=== PATIENT | female | born 1965 | race Caucasian/White ===

== ENCOUNTER 2020-04-25 12:09 | Emergency (ER) | payer OTHER ==
[~2020-04-25] VITALS: Ht 167.6 cm; Wt 65.9 kg
[2020-04-25 12:17] VITALS: Ht 167.6 cm; Wt 65.9 kg
[2020-04-25 13:22] LABS: BASOPHILS 0 % (0-2); EOSINOPHILS 0 % (0-7); HEMATOCRIT 37.1 % (36.0-48.0); HEMOGLOBIN 12.2 g/dL (12-16); IMMATURE GRANULOCYTES 0.3 % (0-5); LYMPHOCYTES 8.6 % (15-50); MCHC 32.9 g/dL (31.0-37.0); MCV 88.1 fL (80.0-100.0); MEAN PLATELET VOLUME 9.9 fL (7.4-10.4); NEUTROPHILS 83.1 % (40-80); PLATELET COUNT 196 10x3/uL (130-400); RBC 4.21 10x6/uL (4.00-5.40); RDW 12.7 % (11.5-14.5); WBC 11.3 10x3/uL (4.8-10.8)
[2020-04-25 13:31] LABS: CALC OSMOLALITY 272 mosm/kg (275-300); CALCIUM 8.8 mg/dL (8.5-10.1); CARBON DIOXIDE 26.3 mmol/L (21.0-32.0); CHLORIDE - SERUM 100 mmol/L (98-107); CREATININE - SERUM 0.7 mg/dL (0.6-1.3); GLUCOSE 96 mg/dL (74-106); POTASSIUM - SERUM 3.7 mmol/L (3.5-5.1); SODIUM 137 mmol/L (136-145); UREA NITROGEN 10 mg/dL (7-18); eGFR NON AFRICAN AMERICAN > 90 mL/min (90-120)
[2020-04-25 13:37] LABS: ALBUMIN 3.6 g/dL (3.4-5.0); ALKALINE PHOSPHATASE 85 U/L (30-120); ALT (SGPT) 16 U/L (10-68); APTT 31.7 SECONDS (22.8-39.4); BILIRUBIN - TOTAL 0.46 mg/dL (0.2-1.3); INR 1.21 (0.85-1.17); PROTEIN - SERUM 8.1 g/dL (6.4-8.2); PROTIME 15.3 SECONDS (11.6-15.0)
[2020-04-25 14:33] LABS: D-DIMER-QUANTITATIVE > 20.00 ug/mLFEU (0.20-0.54)
[2020-04-25 14:36] LABS: C-REACTIVE PROTEIN 25.2 mg/dL (0.0-0.9)
[2020-04-25] MEDS ORDERED: ALBUTEROL SULF8.5 GM INH (17:52)
[2020-04-25] MEDS ORDERED: STERAPRED DS 1010 MG PO (17:52)
[2020-04-25] MEDS ORDERED: TESSALON PERLE100 MG PO (17:52)
[2020-04-25] MEDS ORDERED: ZPAK PO (17:52)
[2020-04-25 19:31] VITALS: BP 148/71
== END 2020-04-25 19:07 | disposition home or self-care (01) ==
LOC: D.ER 12:09
PROVIDERS: Family Medicine
DX: R04.2 Hemoptysis (principal); R79.82 Elevated C-reactive protein (CRP); R79.1 Abnormal coagulation profile; I10 Essential (primary) hypertension; D72.829 Elevated white blood cell count, unspecified; Z20.828 Contact with and (suspected) exposure to other viral communicable diseases; F17.219 Nicotine dependence, cigarettes, with unspecified nicotine-induced disorders

== ENCOUNTER 2020-05-08 15:13 | Inpatient (IN) | payer OTHER ==
[~2020-05-08] VITALS: Ht 152.4 cm; Wt 65.0 kg
--- NOTE | ~2020-05-08 | CN ---
PATIENT NAME:KELY CHANG MEDICAL RECORD: [id number] : 63 LOCATION:D. D.2119 ADMIT DATE: 05/08/20 ACCOUNT: [id number] CONSULTING PHYSICIAN: CHERI FINCH MD REFERRING PHYSICIAN: TOM ACOSTA MD DATE OF CONSULTATION: 05/09/2020 HISTORY OF PRESENT ILLNESS: A 54-year-old female with no known history of coronary artery disease. She has a history of borderline hypertension, on no medications, been told to have hyperlipidemia in the past, as well as family history of coronary artery disease. Has 2-week history of just generalized malaise, fatigue, tiredness, began having chest tightness, pressure, difficulty breathing, long-term smoking history. She thought this might be secondary to obstructive pulmonary disease; however, found to have NSTEMI. We are asked to see her concerning her cardiovascular status. PAST MEDICAL HISTORY: Includes; 1. History of hypertension, lifestyle controlled. 2. Dyslipidemia. 3. Obstructive pulmonary disease. ALLERGIES: DEMEROL. MEDICATIONS: Chronically at home include albuterol 2 puffs q.i.d., Tessalon Perles 100 mg t.i.d. p.r.n. SOCIAL HISTORY: Smokes about a pack a day, nondrinker. No illicit drug use. Easily takes care of all her ADLs. REVIEW OF SYSTEMS: The patient reports easy bruising but reports no swollen glands. The patient reports no fever, no night sweats, no significant weight gain, no significant weight loss. No significant exercise tolerance. The patient reports no dry eyes, no irritation, no vision change. Patient reports no difficulty hearing and no ear pain. Patient reports no frequent nose bleeds or nose and sinus problems. Patient reports on arm pain on exertion. No shortness of breath while lying down. No history of heart murmur. Patient reports no cough, no wheezing or coughing up blood. Patient reports no abdominal pain, no vomiting. Normal appetite. No diarrhea and not vomiting blood. No nausea and no constipation. Patient reports no incontinence. No difficulty urinating. No hematuria. No increased frequency. Patient reports no muscle aches. No weakness, no arthralgias, no back pain. No swelling of the extremities. Patient reports no abnormal mole, no jaundice, no rashes. Reports no loss of consciousness. No weakness and no numbness. No seizures, dizziness, or headaches. The patient reports no depression, no sleep disturbance, feeling safe in a relationship and no alcohol abuse. Patient reports on fatigue. Reports no runny nose or sinus pressure. No itching, no hives, and no frequent sneezing. PHYSICAL EXAMINATION: GENERAL: No acute distress, appears stated age. VITAL SIGNS: Blood pressure 109/55, pulse 80 and regular. HEENT: Normocephalic, atraumatic. NECK: No JVD or bruit. HEART: Regular, II/ systolic ejection murmur. LUNGS: Slight prolonged expiratory phase, few wheezes. CONSULT REPORT [id number] KELY CHANG ABDOMEN: Soft, nontender. EXTREMITIES: Pulses 2+. There is no edema. DIAGNOSTIC DATA: EKG without acute ST-T changes. IMPRESSION AND PLAN: Non-ST elevation myocardial infarction, intermittent pain since admission. We will plan for angiography. Intervention based on the above. TRANSINT:[id number] Voice Confirmation ID: [id number] DOCUMENT ID: [id number] CHERI FINCH MD CC: [id number] DICTATION DATE: 05/09/20842 PERSONNEL SCHEDULER: 05/09/20 1032 ADM IN [facility] [address] [place] [address]
--- NOTE | ~2020-05-08 | HEMODYNAMI ---
PATIENT:KELY CHANG MEDICAL RECORD: [id number] : 63 LOCATION:[facility] D.2119 ADMISSION DATE: 05/08/20 Generatedon:05/09/202015:13 Patient name: KELY CHANG Patient #: [id number] SSN: [id number] : 1965 Date of study: 05/09/2020 Page: Of Hemodynamic Procedure Report Patient Data Patient Demographics Procedure consent was obtained First Name: KELY Gender: Female Last Name: CHARLENE : 1965 Patient #: [id number] Age: 54 year(s) Race: Unknown SSN: [id number] Additional ID: [id number] Contact details Address: [address] [place] [address] State: [place] City: [place] Zip code: [address] Past Medical History Allergies Allergen Reaction Date Comments Reported Other allergy 05/09/2020 demerol Admission Admission Data Admission Date: 05/08/2020 Admission Time: 17:35 Arrival Date: 05/09/2020 Arrival Time: 0:00 Admit Source: Other [facility] #: [id number] Room #: [facility]9 Height (in.): 59.84 BSA: 1.62 (m2) Height (cm.): 152 BMI: 28.13 (kg/m2) Weight (lbs.): 143.3 Weight (kg.): 65 Lab Results Lab Result Date: 05/09/2020 Lab Result Time: 0:00 Biochemistry Name Units Result Min Max BUN mg/dl 10 --(-*--)-- 7 18 Creatinine mg/dl 0.8 --(-*--)-- 0.6 1.3 eGFR ml/min 79.76871 *-(----)-- 90 120 NONAFRICAN CBC Name Units Result Min Max Hemoglobin g/dl 10.6 *-(----)-- 13.5 17.5 Procedure Procedure Types Cath Procedure Diagnostic Procedure LHC LHC w/Coronaries Procedure Description Procedure Date Procedure Date: 05/09/2020 Procedure Start Time: 14:56 Procedure End Time: 15:08 Procedure Staff Name Function Xavier La MD Performing Physician Caridad Graves RT Monitor Dirk Neumann RN Nurse Hilaria Muir RT Scrub Procedure Data Cath Procedure Fluoroscopy Diagnostic fluoroscopy Total fluoroscopy Time: 1.8 time: 1.8 min min Diagnostic fluoroscopy Total fluoroscopy dose: 138 dose: 138 mGy mGy Contrast Material Contrast Material Type Amount (ml) Isovue 370 79 Entry Location Entry Primary Successful Side Size Upsize Upsize Entry Closure Succes sful Closure Location (Fr) 1 (Fr) 2 (Fr) Remarks Device Remarks Femoral Right 5 Fr Exoseal artery Estimated blood loss: 10 ml Diagnostic catheters Device Type Used For End Catheter Placement MULTIPACK JL 4.0 5Fr Procedure catheter MULTIPACK 3DRC 5Fr Procedure catheter MULTIPACK Pigtail 5 Fr Ventriculography catheter Procedure Complications No complications Procedure Medications Medication Administration Route Dosage 0.9% NaCl I.V. 100 ml/hr Oxygen etCO2 Nasal cannula 2 l/min Heparin Flush Bag added to field 2 bags (1000units/500ml NS) Lidocaine 2% added to field 20 Versed I.V. 2 mg Fentanyl I.V. 100 mcg Versed I.V. 2 mg Hemodynamics Rest BSA: 1.62 (m2) HGB: 10.6 (g/dl) O2 Consumption: Estimated: 167.04 (ml/min) O2 Co nsumption indexed: Estimated:103.11 (ml/min/m) Heart Rate: 88 (bpm) Pressure Samples Time Site Value (mmHg) Purpose Heart Use Rate(bpm) 15:04 LV 155/11,34 Snapshot 50 15:05 AO 156/79(115) Pullback 79 15:05 LV 153/11,34 Pullback 79 Gradients Valve Time Site 1 Site 2 Mean SEP/DFP Peak To Heart Use (mmHg) (sec/min) Peak Rate (mmHg) (bpm) Aortic 15:05 LV AO 0 22 0 79 153/11,34 156/79(115) Calculations Valve P-P Mean Valve Index Valve Source Name Gradient Area Flow (cm2) Aortic 0 0 0 0 Snapshots Pre Cath Intra NCS Post Cath Vital Signs Time Heart Resp SPO2 etCO2 NIBP (mmHg) Rhythm Pain Sedation Rate (ipm) (%) (mmHg) Status Level (bpm) 14:48:32 89 15 100 35.2 144/73(103) NSR 0 (11) 10(A) , No pain 14:52:46 86 16 100 29.2 142/71(110) NSR 0 (11) 10(A) , No pain 14:57:00 88 24 100 26.2 145/74(107) NSR 0 (11) 10(A) , No pain 15:01:16 89 17 99 33.7 133/72(95) NSR 0 (11) 9(A) , No pain 15:05:28 89 18 98 35.2 125/67(91) NSR 0 (11) 9(A) , No pain Medications Time Medication Route Dose Verified Delivered Reason Notes Eff ectiveness by by 14:46:50 0.9% NaCl I.V. 100 Dirk Dirk Per ml/hr Thien Neumann physician RN RN 14:47:00 Oxygen etCO2 2 Dirk Dirk for low 02 Nasal l/min Lorigan Lorigan sats cannula RN RN 14:47:11 Heparin Flush added 2 Dirk Dirk used for Bag to bags Lorigan Thien procedure (1000units/500ml field RN RN NS) 14:47:22 Lidocaine 2% added 20ml Dirk Dirk for local to vial Lorigan Lorigan anesthetic field RN RN 14:57:06 Versed I.V. 2 mg Dirk Dirk for Lorigan Lorigan sedation RN RN 14:57:16 Fentanyl I.V. 100 Dirk Dirk for mcg Lorigan Lorigan sedation RN RN 14:58:14 Versed I.V. 2 mg Dirk Dirk for Lorigan Lorigan sedation RN product line manager Log Time Note 14:25:28 Arrival Date: 05/09/2020 12:00:00 AM 14:25:45 Admit Source: Other 14:26:15 Patient Height : 59.84 inches 14:26:20 Patient Weight : 143.3 lbs 14:26:59 Lab Result : Hemoglobin 10.6 g/dl 14:26:59 Lab Result : eGFR NONAFRICAN 79.64973 ml/min 14:26:59 Lab Result : BUN 10 mg/dl 14:26:59 Lab Result : Creatinine 0.8 mg/dl 14:27:21 Diagnostic Cath Status : Urgent 14:27:52 Procedure Status Urgent Heart Cath (IP). 14:27:55 Dirk Neumann RN sent for patient. Start room use. 14:28:06 Time tracking: Regular hours (M-F 7:00 - 5:00) 14:28:14 Plan of Care:Hemodynamics will remain stable., Cardiac rhythm will remain stable., Comfort level will be maintained., Respiratory function will remain adequate., Patient/ family verbilizes understanding of procedure., Procedure tolerated without complication., Recovers from procedure without complications.. 14:28:23 Patient received from Med II to CCL 3 Alert and oriented. Tansferred to table in Supine position. 14:28:32 Signed procedure consent form obtained from patient. 14:29:05 H&P Date Dictated: 05/08/2020 Within 30 days and on chart.. 14:29:07 Pre-procedure instructions explained to patient. 14:29:09 Family in patients room. 14:29:11 Patient NPO since Midnight. 14:29:38 Patient allergic to Other allergydemerol 14:46:50 0.9% NaCl 100 ml/hr I.V. was administered by Dirk Neumann RN; Per physician; Verbal order read back and verified. 14:47:00 Oxygen 2 l/min etCO2 Nasal cannula was administered by Dirk Neumann RN; for low 02 sats; Verbal order read back and verified. 14:47:11 Heparin Flush Bag (1000units/500ml NS) 2 bags added to field was administered by Dirk Neumann RN; used for procedure; Verbal order read back and verified. 14:47:22 Lidocaine 2% 20ml vial added to field was administered by Dirk Neumann RN; for local anesthetic; Verbal order read back and verified. 14:47:25 Vital chart was started 14:48:14 Warm blankets applied, and meggan hugger turned on for patient comfort. 14:48:14 Correct patient and procedure confirmed by team. 14:48:15 ECG and BP/O2 sat monitors applied to patient. 14:48:16 Baseline sample Acquired. 14:48:17 Full Disclosure recording started 14:48:22 Was the patient premedicated? Yes 14:48:24 Is patient on blood thinner?Yes 14:48:28 ACC The patient was administered the following blood thiners within the last 24 hours: ACCLovenox 14:48:41 Patient diabetic? No. 14:48:45 Snore? Yes 14:48:47 Sleep apnea? No 14:48:54 Dentures? Yes tight 14:49:11 Patient pain scale 0/10 ?. 14:49:21 IV patent on arrival in right forearm with 0.9% NaCl at [facility]. 14:49:26 Lab results completed and on chart. 14:49:32 Right groin area was prepped with chlora-prep and draped in sterile fashion 14:49:33 Alarms reviewed by R. N. 14:49:34 Sharps counted by scrub and verified by R.N. 14:53:44 Physician arrived 14:53:45 --------ALL STOP TIME OUT------ 14:53:45 Final Timeout: patient, procedure, and site verified with staff and physician. All members of the team are in agreement. 14:53:47 Right groin site verified by team. 14:53:51 Fire Safety Assessment: A--An alcohol-based skin anteseptic being used preoperatively., C--Open oxygen or nitrous oxide is being used., D--An ESU, laser, or fiber-optic light is being used. 14:53:57 Physical assessment completed. ASA score P 2 - A patient with mild systemic disease as per Xavier La MD. 14:54:10 2) 60-89 Mildly reduced kidney function, and other findings (as for stage 1) point to kidney disease. 14:54:38 Maximum allowable contrast dose (3.7 X eGFR X 0.75)219 ml. 14:54:42 Sedation plan: IV Moderate Sedation Medication:Versed, Fentanyl 14:54:47 Use device set Femoral Dx 14:54:48 ACIST Syringe (90785) opened to sterile field. 14:54:49 Bag Decanter (2002) opened to sterile field. 14:54:49 Medline Cath Pack ([id number]) opened to sterile field. 14:54:51 ACIST Hand Control (35311) opened to sterile field. 14:54:51 ACIST Manifold (30438) opened to sterile field. 14:54:52 DIAGNOSTIC Multipack 5Fr catheter set (JH0504) opened to sterile field. 14:54:53 Tegaderm 4 x 4 (1626W) opened to sterile field. 14:54:55 SHEATH 5FR [place] (ACW967) opened to sterile field. 14:54:57 EMERALD Guide Wire (878-881) opened to sterile field. 14:54:59 Procedure started. 14:56:53 Local anesthetic to right femoral artery with Lidocaine 2% by Xavier La MD.INITIAL ACCESS ONLY 14:57:04 A 5 Fr sheath was inserted into the Right Femoral artery 14:57:06 Versed 2 mg I.V. was administered by Dirk Neumann RN; for sedation; Verbal order read back and verified. 14:57:16 Fentanyl 100 mcg I.V. was administered by Dirk Neumann RN; for sedation; Verbal order read back and verified. 14:58:14 Versed 2 mg I.V. was administered by Dirk Neumann RN; for sedation; Verbal order read back and verified. 14:59:06 A MULTIPACK JL 4.0 5Fr catheter was advanced over the wire and used for Procedure. 14:59:12 LCA angiography performed. 15:01:34 Catheter removed. 15:01:41 A MULTIPACK 3DRC 5Fr catheter was advanced over the wire and used for Procedure. 15:02:12 RCA angiography performed. 15:03:08 Catheter removed. 15:03:15 A MULTIPACK Pigtail 5 Fr catheter was advanced over the wire and used for Ventriculography. 15:05:32 EF : 50 % 15:05:34 Catheter removed. 15:05:35 EXOSEAL 5Fr (EX500) opened to sterile field. 15:05:48 Sheath removed intact; hemostasis achieved with Exoseal to the Right Femoral artery. 15:05:53 Procedure ended.(Physican Out) 15:06:20 Fluoroscopy time 01.80 minutes. 15:06:26 Fluoroscopy dose: 138 mGy 15:06:26 Flurop Dose total: 138 15:06:32 Dose Area Product 930 mGy/cm. 15:06:38 Contrast amount:Isovue 370 79ml. 15:06:40 Sharps counted by scrub and verified by R.N. 15:06:41 Insertion/operative site no bleeding no hematoma. 15:06:51 Post-op/insertion site Right Femoral artery dressed using a 4 x 4 and Tegaderm. 15:06:56 Post-procedure physical assessment completed. ASA score P 2 - A patient with mild systemic disease as per Xavier La MD. 15:07:00 Post procedure rhythm: sinus rhythm 15:07:19 Estimated blood loss: 10 ml 15:07:21 Post procedure instruction explained to patient.Patient verbalizes understanding. 15:07:46 Procedure and supply charges have been captured, reviewed, submitted and are correct. 15:08:11 Procedure Complication : No complications 15:08:13 Vital chart was stopped 15:08:16 [facility] Findings: mild to moderate CAD (<70%) 15:08:19 See physician's report for complete and final results. 15:08:23 Report given to [facility] II. 15:08:30 Patient transfered to Med II with Bed. 15:08:32 Procedure ended. 15:08:32 Full Disclosure recording stopped 15:08:38 End room use (Document Last) 15:13:15 End room use (Document Last) Device Usage Item Name Manufacture Quantity Catalog Hospital Part Current Minimal L ot# / Number Charge Number Stock Stock Serial# Code ACIST Acist 1 27381 [id number] 240821 723303 20 Syringe Medical (72989) Systems Inc Bag Microtek 1 2001S 748316 60024 866270 5 Decanter Medical Inc. () Medline Medline 1 [id number] 231072 65924 091683 5 Cath Pack ([id number]) ACIST Hand Acist 1 86612 303036 511680 535136 5 Control Medical (88126) Systems Inc ACIST Acist 1 67962 398158 323806 877159 5 Manifold Medical (72213) Systems Inc DIAGNOSTIC Cardinal 1 [id number] 888061 51122 782579 30 Multipack Health 5Fr catheter set (QY8338) Tegaderm 4 3M 1 1626W 979112 343644 527557 5 x 4 (1626W) SHEATH 5FR Terumo 1 RWY177 451803 561094 594444 5 [place] (HVS259) EMERALD Cardinal 1 502-455 608069 113329 486948 5 Guide Wire [facility] (502-659) MULTIPACK Cardinal 1 585149 5 JL 4.0 5Fr Health catheter MULTIPACK Cardinal 1 436504 5 3DRC 5Fr Health catheter MULTIPACK Cardinal 1 144559 5 Pigtail 5 Health Fr catheter EXOSEAL 5Fr Cardinal 1 EX500 118246 665775 034620 10 (EX500) Health Signature Audit [place] Stage Time Signature Unsigned Intra-Procedure 05/09/2020 Caridad Graves 3:12:45 PM RT(R) Intra-Procedure 05/09/2020 Dirk 3:13:15 PM Thien MONTES Intra-Procedure 05/09/2020 Xavier La MD 3:13:[address] [address]
[~2020-05-08 15:13] MED LIST: ALBUTEROL SULF8.5 GM INH; STERAPRED DS 1010 MG PO; TESSALON PERLE100 MG PO; ZPAK PO
[2020-05-08 16:13] LABS: BASOPHILS 0.1 % (0-2); EOSINOPHILS 0 % (0-7); HEMATOCRIT 32.5 % (36.0-48.0); HEMOGLOBIN 10.6 g/dL (12-16); IMMATURE GRANULOCYTES 0.9 % (0-5); LYMPHOCYTES 10.9 % (15-50); MCHC 32.6 g/dL (31.0-37.0); MEAN PLATELET VOLUME 9.7 fL (7.4-10.4); MONOCYTES 5.9 % (2-11); NEUTROPHILS 82.2 % (40-80); RBC 3.78 10x6/uL (4.00-5.40); RDW 12.7 % (11.5-14.5)
[2020-05-08 16:14] LABS: PLATELET COUNT 142 10x3/uL (130-400)
--- NOTE | 2020-05-08 16:19 | NUR ---
URINE SAMPLE OBTAINED AND SENT TO LAB
[2020-05-08 16:26] VITALS: BP 136/67
[2020-05-08 16:37] LABS: CALC OSMOLALITY 261 mosm/kg (275-300); CALCIUM 8.3 mg/dL (8.5-10.1); CARBON DIOXIDE 28.6 mmol/L (21.0-32.0); CHLORIDE - SERUM 98 mmol/L (98-107); CREATININE - SERUM 0.8 mg/dL (0.6-1.3); GLUCOSE 102 mg/dL (74-106); POTASSIUM - SERUM 3.2 mmol/L (3.5-5.1); SODIUM 131 mmol/L (136-145); UREA NITROGEN 10 mg/dL (7-18); eGFR NON AFRICAN AMERICAN 79 mL/min (90-120)
[2020-05-08 16:50] LABS: BILIRUBIN NEGATIVE (NEGATIVE); KETONE NEGATIVE (NEGATIVE); NITRITE NEGATIVE (NEGATIVE); UROBILINOGEN NORMAL mg/dL (< 2)
[2020-05-08 16:51] LABS: BACTERIA FEW /HPF (NONE SEEN); EPITHELIAL CELLS 0-5 /hpf (0-5); WHITE CELLS - URINE 0-5 HPF (0-4)
[2020-05-08 16:59] LABS: ALBUMIN 2.9 g/dL (3.4-5.0); ALKALINE PHOSPHATASE 80 U/L (30-120); ALT (SGPT) 19 U/L (10-68); AMYLASE - SERUM 46 U/L (25-115); BILIRUBIN - TOTAL 0.61 mg/dL (0.2-1.3); LIPASE 132 U/L (73-393); PROTEIN - SERUM 7.1 g/dL (6.4-8.2)
[2020-05-08 17:06] LABS: TROPONIN-I 5.506 ng/mL (0.000-0.060)
[2020-05-08 17:41] LABS: CREATINE KINASE 237 UL (21-215)
--- NOTE | 2020-05-08 18:20 | NUR ---
PT REPORT CALLED TO DWAYNE
--- NOTE | 2020-05-08 19:30 | NUR ---
PATIENT ARRIVED FROM ER. PATIENT IS ALERT AND ORIENTED, RESTING COMFORTABLY IN BED. RESPIRATIONS ARE EVEN AND UNLABORED. NO S/S OF DISTRESS. NO C/O PAIN. CALL LIGHT WITHIN REACH. WILL CPOC.
[2020-05-08 20:00] VITALS: BP 149/62
[2020-05-09] VITALS: BP 135/62
[2020-05-09 00:45] VITALS: Ht 152.4 cm; Wt 65.0 kg
[2020-05-09 01:02] LABS: CKMB 26.9 U/L (0.0-3.6); CREATINE KINASE 264 UL (21-215)
[2020-05-09 01:04] LABS: TROPONIN-I 8.618 ng/mL (0.000-0.060)
[2020-05-09 04:00] VITALS: BP 109/55
[2020-05-09 07:06] LABS: APTT 54.1 SECONDS (22.8-39.4); INR 1.38 (0.85-1.17); PROTIME 16.9 SECONDS (11.6-15.0)
[2020-05-09 07:14] LABS: BASOPHILS 0 % (0-2); EOSINOPHILS 0 % (0-7); HEMATOCRIT 30.4 % (36.0-48.0); HEMOGLOBIN 9.9 g/dL (12-16); IMMATURE GRANULOCYTES 0.8 % (0-5); LYMPHOCYTES 12.8 % (15-50); MCHC 32.6 g/dL (31.0-37.0); MCV 85.9 fL (80.0-100.0); MEAN PLATELET VOLUME 9.6 fL (7.4-10.4); MONOCYTES 6.8 % (2-11); NEUTROPHILS 79.6 % (40-80); PLATELET COUNT 124 10x3/uL (130-400); RBC 3.54 10x6/uL (4.00-5.40); RDW 12.7 % (11.5-14.5); WBC 11.3 10x3/uL (4.8-10.8)
[2020-05-09 08:00] VITALS: BP 127/59
[2020-05-09 08:01] LABS: D-DIMER-QUANTITATIVE > 20.00 ug/mLFEU (0.20-0.54)
[2020-05-09 08:59] LABS: CALC OSMOLALITY 265 mosm/kg (275-300); CALCIUM 8.1 mg/dL (8.5-10.1); CARBON DIOXIDE 26.7 mmol/L (21.0-32.0); CHLORIDE - SERUM 100 mmol/L (98-107); CHOL - HDL RATIO 5.2 ratio (2.3-4.1); CHOLESTEROL, TOTAL 206 mg/dL (0-200); CREATINE KINASE 243 UL (21-215); CREATININE - SERUM 0.7 mg/dL (0.6-1.3); GLUCOSE 86 mg/dL (74-106); HDL CHOLESTEROL 40 mg/dL (32-96); LDL CHOLESTEROL 141 mg/dL (0-100); LDL-HDL RATIO 3.5 ratio (1.5-3.5); MAGNESIUM - SERUM 1.9 mg/dL (1.8-2.4); PRO BNP 4304 pg/mL (0-125); SODIUM 134 mmol/L (136-145); TRIGLYCERIDE 129 mg/dL (30-200); UREA NITROGEN 9 mg/dL (7-18); eGFR NON AFRICAN AMERICAN > 90 mL/min (90-120)
[2020-05-09 09:00] LABS: POTASSIUM - SERUM 3.7 mmol/L (3.5-5.1); TROPONIN-I 7.211 ng/mL (0.000-0.060)
[2020-05-09 10:15] LABS: ALT (SGPT) 21 U/L (10-68)
--- NOTE | 2020-05-09 11:36 | NUR ---
URINE SPECIMEN COLLECTED AND TAKEN TO LAB. WILL MONITOR.
[2020-05-09 12:21] LABS: UDS - AMPHET NEGATIVE QUAL (NEGATIVE); UDS - BARB NEGATIVE QUAL (NEGATIVE); UDS - BENZO NEGATIVE QUAL (NEGATIVE); UDS - COCAINE NEGATIVE QUAL (NEGATIVE); UDS - OPIATE POSITIVE QUAL (NEGATIVE); UDS - PCP NEGATIVE QUAL (NEGATIVE); UDS - THC NEGATIVE QUAL (NEGATIVE)
[2020-05-09 14:26] LABS: CKMB 14.2 U/L (0.0-3.6); CREATINE KINASE 175 UL (21-215)
[2020-05-09 14:28] LABS: TROPONIN-I 5.224 ng/mL (0.000-0.060)
--- NOTE | 2020-05-09 14:34 | NUR ---
PRE-OPS GIVEN. TO PREPARED FOODS SERVICE TEAM MEMBER BY BED.
--- NOTE | 2020-05-09 15:35 | NUR ---
BACK FROM REGIONAL TRANSFER LIAISON. VS WNL. RIGHT GROIN STABLE WITHOUT BLEEDING OR HEMATOMA NOTED. WILL MONITOR.
--- NOTE | 2020-05-09 17:38 | NUR ---
BED REST UP. GROIN STABLE.
--- NOTE | 2020-05-09 19:39 | NUR ---
RECEIVED BEDSIDE REPORT. ROUNDING COMPLETE. PATIENT RESTING COMFORTABLY IN BED. RESPIRATIONS ARE EVEN AND UNLABORED. NO S/S OF DISTRESS. NO C/O PAIN. CALL LIGHT WITHIN REACH. NEEDS MET.
[2020-05-09 20:00] VITALS: BP 129/62
[2020-05-10] VITALS (7 sets, daily range): BP systolic 127–146; BP diastolic 58–73
[2020-05-10 07:19] LABS: CALC OSMOLALITY 266 mosm/kg (275-300); CALCIUM 8.3 mg/dL (8.5-10.1); CARBON DIOXIDE 25.8 mmol/L (21.0-32.0); CHLORIDE - SERUM 99 mmol/L (98-107); CREATININE - SERUM 0.7 mg/dL (0.6-1.3); GLUCOSE 97 mg/dL (74-106); MAGNESIUM - SERUM 1.9 mg/dL (1.8-2.4); PHOSPHOROUS 3.2 mg/dL (2.5-4.9); POTASSIUM - SERUM 3.8 mmol/L (3.5-5.1); SODIUM 134 mmol/L (136-145); UREA NITROGEN 10 mg/dL (7-18); eGFR NON AFRICAN AMERICAN > 90 mL/min (90-120)
[2020-05-10 07:28] LABS: BASOPHILS 0 % (0-2); EOSINOPHILS 0 % (0-7); HEMATOCRIT 28.8 % (36.0-48.0); HEMOGLOBIN 9.3 g/dL (12-16); IMMATURE GRANULOCYTES 0.7 % (0-5); LYMPHOCYTES 11.6 % (15-50); MCH 27.6 pg (26.0-34.0); MCHC 32.3 g/dL (31.0-37.0); MCV 85.5 fL (80.0-100.0); MEAN PLATELET VOLUME 9.8 fL (7.4-10.4); MONOCYTES 8.6 % (2-11); NEUTROPHILS 79.1 % (40-80); PLATELET COUNT 120 10x3/uL (130-400); RBC 3.37 10x6/uL (4.00-5.40); RDW 12.6 % (11.5-14.5); WBC 10.1 10x3/uL (4.8-10.8)
--- NOTE | 2020-05-10 13:58 | NUR ---
TELEMETRY SR. AMBULATES HALLWAY WITH AT SIDE.
--- NOTE | 2020-05-10 19:30 | NUR ---
RECEIVED BEDSIDE REPORT. PATIENT IS ALERT AND ORIENTED, RESTING IN BED. PATIENT REQUESTING PAIN MEDICATION. MOROHINE ADMINISTERED. RESPIRATIONS ARE EVEN AND UNLABORED. NO S/S OF DISTRESS. NO C/O PAIN. CALL LIGHT WITHIN REACH. WILL CPOC.
[2020-05-11 04:00] VITALS: BP 128/53
[2020-05-11 05:51] LABS: BASOPHILS 0 % (0-2); EOSINOPHILS 0 % (0-7); HEMATOCRIT 28.7 % (36.0-48.0); HEMOGLOBIN 9.4 g/dL (12-16); IMMATURE GRANULOCYTES 0.6 % (0-5); MCHC 32.8 g/dL (31.0-37.0); MCV 85.4 fL (80.0-100.0); MEAN PLATELET VOLUME 9.9 fL (7.4-10.4); MONOCYTES 5.8 % (2-11); NEUTROPHILS 84.6 % (40-80); PLATELET COUNT 127 10x3/uL (130-400); RBC 3.36 10x6/uL (4.00-5.40); RDW 12.7 % (11.5-14.5); WBC 12.5 10x3/uL (4.8-10.8)
[2020-05-11 05:56] LABS: CALC OSMOLALITY 264 mosm/kg (275-300); CALCIUM 8.4 mg/dL (8.5-10.1); CARBON DIOXIDE 25.3 mmol/L (21.0-32.0); CHLORIDE - SERUM 98 mmol/L (98-107); CREATININE - SERUM 0.6 mg/dL (0.6-1.3); GLUCOSE 103 mg/dL (74-106); MAGNESIUM - SERUM 1.9 mg/dL (1.8-2.4); PHOSPHOROUS 3.4 mg/dL (2.5-4.9); POTASSIUM - SERUM 3.6 mmol/L (3.5-5.1); SODIUM 133 mmol/L (136-145); UREA NITROGEN 9 mg/dL (7-18); eGFR NON AFRICAN AMERICAN > 90 mL/min (90-120)
[2020-05-11 09:58] VITALS: BP 134/49
--- NOTE | 2020-05-11 11:15 | NUR ---
UP AMBULATING HALLWAY WITH . GAIT STEADY.
--- NOTE | 2020-05-11 11:19 | NUR ---
02 SAT 98% ON ROOM AIR AFTER AMBULATION.
[2020-05-11] MEDS ORDERED: MUCINEX600 MG PO (11:22)
[2020-05-11] MEDS ORDERED: TESSALON PERLE100 MG PO (11:22)
[2020-05-11] MEDS ORDERED: ELIQUIS5 MG PO ×2 (11:23→11:24)
[2020-05-11] MEDS ORDERED: OMNICEF300 MG PO (11:24)
[2020-05-11] MEDS ORDERED: ZITHROMAX500 MG PO (11:25)
--- NOTE | 2020-05-11 12:13 | MORECARE ---
CASE MANAGEMENT DISCHARGE SUMMARY PATIENT: KELY VALIENTE UNIT: [id number] ADM DATE: 05/08/20 AGE: 54 : 63 SEX: F ROOM/BED: D.2119 AUTHOR: ROSE MARIE HILLS PHYSICIAN: REFERRING PHYSICIAN: TOM ACOSTA MD DATE OF SERVICE: 05/11/20 Discharge Plan Patient Name: [facility]ELY VAL[facility]E [facility] [facility] 1965 Planned Disposition: Home Anticipated Discharge Date: Discharge Date: Expected LOS: Initial Reviewer: [email or web address] Initial Review Date: 05/11/2020 Generated: 05/11/20 1:12 pm DCPIA - Discharge Planning Initial Assessment Updated by [email or web address]: Mayela Iniguez on 05/11/20 12:12 pm * Is the patient Alert and Oriented? Yes * PCP No PCP - is following up with [facility] Physician * Pharmacy [facility] on [place] * Preadmission Environment Home with Family * ADLs Independent * Equipment None * List name and contact numbers for known caregivers / representatives who currently or will assist patient after discharge: Luisito Valiente - spouse - [phone] * Verbal permission to speak to the caregivers and representatives has been obtained from the patient. Yes * Community resources currently utilized VA Services * Please name any agencies selected above. [facility] * Additional services required to return to the preadmission environment? No * Can the patient safely return to the preadmission environment? Yes * Has this patient been hospitalized within the prior 30 days at any hospital? No Patient Name: KELY VALIENTE Page [phone] at 1213 All edits/amendments must be made on the electronic document DICTATION DATE: 05/11/20 121 PIPE FITTER APPRENTICE: GERRI 05/11/20 1212 RPT#: [id number] DC DATE: STATUS: ADM IN [facility] [address] [place] [address] END OF REPORT
--- NOTE | 2020-05-11 12:22 | MORECARE ---
CASE MANAGEMENT DISCHARGE SUMMARY PATIENT: KELY VALIENTE UNIT: [id number] ADM DATE: 05/08/20 AGE: 54 : 63 SEX: F ROOM/BED: D.7630 AUTHOR: ROSE MARIE HILLS PHYSICIAN: REFERRING PHYSICIAN: TOM ACOSTA MD DATE OF SERVICE: 05/11/20 Discharge Plan Patient Name: KELY VALIENTE Facility: [facility]:[place] : 1965 Planned Disposition: Home Anticipated Discharge Date: Discharge Date: Expected LOS: Initial Reviewer: [email or web address] Initial Review Date: 05/11/2020 Generated: 05/11/20 1:22 pm Comments DCP- Discharge Planning Updated by [email or web address]: Mayela Iniguez on 05/11/20 11:[address] Patient Name: KELY VALIENTE Admission Status: ER Accout number: [id number] Admission Date: 05-08-2020 : 1965 Admission Diagnosis:UNSPECIFIED ABDOMINAL PAIN Attending: TOM ACOSTA Current LOS: 3 Anticipated DC Date: Planned Disposition: Home Primary Insurance: Discharge Planning Comments: CM met with patient to complete initial dc planning assessment. CM educated patient on the CM role and verbal consent given by patient to complete assessment. Patient lives at home with her spouse. At discharge patient plans to return and feels this is a safe discharge. CM discussed availability of home health, rehab services, and medical equipment. Patient denied known discharge needs at this time. RT ambulated to assess for home oxygen needs and she did not qualify. CM will continue to follow and will assist as needed with dc plans/needs. Title 1 Tutor: Mayela Iniguez DCPIA - Discharge Planning Initial Assessment Updated by [email or web address]: Mayela Iniguez on 05/11/20 12:12 pm * Is the patient Alert and Oriented? Yes * PCP No PCP - is following up with [facility] Physician * Pharmacy [facility] [address] * Preadmission Environment Home with Family * ADLs Independent * Equipment None * List name and contact numbers for known caregivers / representatives who currently or will assist patient after discharge: Luisito Valiente - spouse - [phone] * Verbal permission to speak to the caregivers and representatives has been obtained from the patient. Yes * Community resources currently utilized VA Services * Please name any agencies selected above. [facility] * Additional services required to return to the preadmission environment? No * Can the patient safely return to the preadmission environment? Yes * Has this patient been hospitalized within the prior 30 days at any hospital? No Last DP export: 05/11/20 11:13 a Patient Name: KELY VALIENTE Page [phone] at 1222 All edits/amendments must be made on the electronic document DICTATION DATE: 05/11/20 1222 PROCEDURE WRITER: GERRI 05/11/20 1222 RPT#: [id number] DC DATE: STATUS: ADM IN [facility] [address] [place] [address] END OF REPORT
--- NOTE | 2020-05-11 12:42 | NUR ---
IV AND TELEMETRY DCD. DC PLANS GIVEN. UNDERSTANDING VOICED. ESCORTED TO CAR BY W/C.
--- NOTE | 2020-05-14 09:06 | MORECARE ---
CASE MANAGEMENT DISCHARGE SUMMARY PATIENT: KELY VALIENTE UNIT: [id number] ADM DATE: 05/08/20 AGE: 54 : 63 SEX: F ROOM/BED: D.3160 AUTHOR: [facility] [place] PHYSICIAN: REFERRING PHYSICIAN: TOM ACOSTA MD DATE OF SERVICE: 05/14/20 Discharge Plan Patient Name: KELY VALIENTE Facility: [facility]:[place] : 1965 Planned Disposition: Home Anticipated Discharge Date: Discharge Date: 05/11/2020 Expected LOS: Initial Reviewer: [email or web address] Initial Review Date: 05/11/2020 Generated: 05/14/20 10:05 am Comments DCP- Discharge Planning Updated by [email or web address]: Mayela Iniguez on 05/11/20 11:[address] Patient Name: KELY VALIENTE Admission Status: ER Accout number: [id number] Admission Date: 05-08-2020 : 1965 Admission Diagnosis:UNSPECIFIED ABDOMINAL PAIN Attending: TOM ACOSTA Current LOS: 3 Anticipated DC Date: Planned Disposition: Home Primary Insurance: Discharge Planning Comments: CM met with patient to complete initial dc planning assessment. CM educated patient on the CM role and verbal consent given by patient to complete assessment. Patient lives at home with her spouse. At discharge patient plans to return and feels this is a safe discharge. CM discussed availability of home health, rehab services, and medical equipment. Patient denied known discharge needs at this time. RT ambulated to assess for home oxygen needs and she did not qualify. CM will continue to follow and will assist as needed with dc plans/needs. Tape Recorder Repairer: Mayela Iniguez DCPIA - Discharge Planning Initial Assessment Updated by [email or web address]: Mayela Iniguez on 05/11/20 12:12 pm * Is the patient Alert and Oriented? Yes * PCP No PCP - is following up with [facility] * [facility] [address] * Preadmission Environment Home with Family * ADLs Independent * Equipment None * List name and contact numbers for known caregivers / representatives who currently or will assist patient after discharge: Luisito Valiente - spouse - [phone] * Verbal permission to speak to the caregivers and representatives has been obtained from the patient. Yes * Community resources currently utilized [facility] * Please name any agencies selected above. [facility] * Additional services required to return to the preadmission environment? No * Can the patient safely return to the preadmission environment? Yes * Has this patient been hospitalized within the prior 30 days at any hospital? No Last DP export: 05/11/20 11:22 a Patient Name: KELY VALIENTE Page [id number] at [id number] All edits/amendments must be made on the electronic document DICTATION DATE: 05/14/20904 SECURITY COMPLIANCE ENGINEER: DM 05/14/20904 RPT#: [id number] DC DATE:05/11/20 STATUS: DIS IN [facility] [address] [place] [address] END OF REPORT
== END 2020-05-11 12:43 | disposition home or self-care (01) | DRG 175 ==
LOC: D.ER 15:13 → D.M2 17:35
PROVIDERS: Family Medicine; Internal Medicine Cardiovascular Disease; Internal Medicine Interventional Cardiology; ADMIT Emergency Medicine; ATTEND Emergency Medicine
PROC: B2151ZZ Fluoroscopy of Left Heart using Low Osmolar Contrast (ICD-10-PCS; 2020-05-09)
PROC: 4A023N7 Measurement of Cardiac Sampling and Pressure, Left Heart, Percutaneous Approach (ICD-10-PCS; 2020-05-09)
PROC: B2111ZZ Fluoroscopy of Multiple Coronary Arteries using Low Osmolar Contrast (ICD-10-PCS; principal; 2020-05-09 14:27)
DX: I26.99 Other pulmonary embolism without acute cor pulmonale (principal); I21.A1 Myocardial infarction type 2; J81.1 Chronic pulmonary edema; I82.412 Acute embolism and thrombosis of left femoral vein; D64.9 Anemia, unspecified; E87.6 Hypokalemia; F17.200 Nicotine dependence, unspecified, uncomplicated